=== PATIENT | female | born 2000 | race Caucasian/White ===

== ENCOUNTER 2020-10-01 11:11 | Outpatient (CLI) | payer BC | END 2020-10-01 11:12 | disposition home or self-care (01) | LOC: CTENTCT 11:11 | PROVIDERS: ATTEND Otolaryngology Plastic Surgery within the Head & Neck | DX: J32.9 Chronic sinusitis, unspecified (principal) | CPT/HCPCS: 70486 ==

== ENCOUNTER 2020-10-02 06:42 | Outpatient (CLI) | payer BC ==
[2020-10-02 14:41] LABS: BHCG - Serum Negative (NEGATIVE); Pregs Control Background? CLEAR/WHITE (CLR/WHITE); Pregs Control Bar Appear? YES (CONTROL BAR)
[2020-10-02 23:04] LABS: SARS-CoV-2 MS2 Positive; SARS-CoV-2 N Gene Negative; SARS-CoV-2 S Gene Negative; SARS-CoV-2 by NAA Not Detected (NotDetected); SARS-CoV-2 orf1ab Negative
== END 2020-10-02 06:43 | disposition home or self-care (01) ==
LOC: LABBT 06:42
PROVIDERS: ATTEND Otolaryngology Plastic Surgery within the Head & Neck
DX: Z01.812 Encounter for preprocedural laboratory examination (principal); Z20.828 Contact with and (suspected) exposure to other viral communicable diseases; J35.01 Chronic tonsillitis; J35.3 Hypertrophy of tonsils with hypertrophy of adenoids; R53.83 Other fatigue; J35.8 Other chronic diseases of tonsils and adenoids
CPT/HCPCS: 84703; 85014; 87635; U0003

== ENCOUNTER 2020-10-07 06:01 | Day surgery (SDC) | payer BC ==
[2020-10-06 12:21] VITALS: BMI 21.9
[2020-10-07] MEDS ORDERED: AFRIN NASAL MIST 15 ML BOT ONE ×2 (06:23→06:53)
[2020-10-07] MEDS ORDERED: Fentanyl 250 MCG/5 ML VIAL ONE (06:40)
[2020-10-07] MEDS ORDERED: Lidocaine 4% Topical Sol 50 ML BOT ONE (06:40)
[2020-10-07] MEDS ORDERED: Albuterol Sulfate HFA (OR ONLY) ONE (06:40)
[2020-10-07] MEDS ORDERED: Lidocaine 1% w/Epinephrine 1:100K 20 ML VIAL ONE (06:53)
[2020-10-07] MEDS ORDERED: Bacitracin Zinc Ointment 30 gm TUBE ONE (06:53)
[2020-10-07] MEDS ORDERED: Ferric Subsulfate (ASTRINGYN) 8 GM VIAL ONE (06:53)
[2020-10-07] MEDS ORDERED: Midazolam HCl 2 mg/2 ml Vial ONE (07:15)
[2020-10-07] MEDS ORDERED: methylPREDNISolone Acetate 40 mg/ml Vial ONE (07:47)
[2020-10-07] MEDS ORDERED: Fentanyl 100 MCG/2 ML VIAL ONE ×2 (08:21→08:32)
[2020-10-07] MEDS ORDERED: Morphine 2 MG/ML VIAL ONE ×2 (09:10→10:54)
[2020-10-07] MEDS ORDERED: Hydrocodone-Acetamin 15 ML UDCUP ONE (09:53)
[2020-10-07] MEDS ORDERED: PROPOFOL 200 MG/20 ML VIAL ONE (10:59)
[2020-10-07] MEDS ORDERED: Lidocaine 1% PF 5 ML VIAL ONE (10:59)
[2020-10-07] MEDS ORDERED: Ondansetron PF 4 MG/2 ML Vial ONE (10:59)
[2020-10-07] MEDS ORDERED: Ondansetron ODT 4 MG TAB ONE (11:58)
--- NOTE | 2020-10-07 15:45 | OP ---
DATE OF PROCEDURE: 10/07/2020 PREOPERATIVE DIAGNOSES: 1. Chronic rhinosinusitis. 2. Nasal septal deviation. 3. Bilateral inferior turbinate hypertrophy. 4. Left middle turbinate mery bullosa. 5. Chronic adenotonsillitis. 6. Adenotonsillar hypertrophy. POSTOPERATIVE DIAGNOSES: 1. Chronic rhinosinusitis. 2. Nasal septal deviation. 3. Bilateral inferior turbinate hypertrophy. 4. Left middle turbinate mery bullosa. 5. Chronic adenotonsillitis. 6. Adenotonsillar hypertrophy. PROCEDURES PERFORMED: 1. Bilateral endoscopic sinus surgery, total ethmoidectomies. 2. Bilateral endoscopic sinus surgery, maxillary antrostomies. 3. Bilateral endoscopic sinus surgery, frontal sinusotomies. 4. Nasal septoplasty. 5. Bilateral inferior turbinate submucosal resection. 6. Left middle turbinate mery bullosa resection. 7. Tonsillectomy and adenoidectomy. ESTIMATED BLOOD LOSS: 20 mL. COMPLICATIONS: None. ANESTHESIA: GETA. DESCRIPTION OF PROCEDURE: TONSILLECTOMY AND ADENOIDECTOMY After consent was obtained, the patient was identified, brought to the operating room, and placed on the operating table in the supine position. General endotracheal anesthesia and intravenous access were obtained and we proceeded with positioning the patient for oropharyngeal surgery. Oropharyngeal exposure was obtained with a Carito-Manuel mouth gag after a head drape was placed and secured with a towel clip. The Carito-Manuel mouth gag was then suspended from the Yi tray and palatal elevation was achieved with a red rubber catheter. The right tonsil was addressed first. We used a curved Allis to grasp the tonsil and retract it medially as an anterior pillar incision was made. The retrotonsillar fascial plane was then established and blunt dissection was performed with the suction cautery. Blood vessels were anticipated, identified, and cauterized as they were encountered. Ultimately, dissection was carried to the posterior tonsillar pillar mucosa which was incised hemostatically, as well as the base of tongue connection. The tonsil was then passed off as a specimen and bleeding points within the tonsillar bed were cauterized under direct visualization. We subsequently turned our attention to the contralateral side, where using a similar technique, a near identical procedure was performed. Again, the tonsil was grasped and retracted medially with a curved Allis. The retrotonsillar fascial plane was established and while the anterior pillar was retracted medially. The hemostatic blunt dissection of the tonsil with a suction cautery was performed with blood vessels anticipated, identified, and cauterized as they were encountered. Again, dissection continued to the base of tongue and posterior tonsillar pillar mucosa which was incised in a hemostatic fashion. The tonsillar beds were then carefully inspected and bleeding points were identified and cauterized with a suction cautery. After this portion of the procedure, hemostasis was completely obtained. Under direct mirror visualization, we visualized the adenoid pad. Under direct mirror visualization, we removed the bulk of the adenoid tissue with the adenoid curette. We then packed the nasopharynx for an appropriate period of time with Olb-[id number] tonsillar sponges. After a period of observation, we removed the pack. Under indirect mirror visualization, we obtained hemostasis and vaporization of residual adenoid tissue with electrocautery. The patient's oral cavity was copiously irrigated with iced saline and subsequently suctioned. After completion of the procedure, the nasal cavity and oropharynx were irrigated and suctioned as were the gastric contents. The patient was then awakened and transferred to the recovery room where the patient remained in stable condition prior to discharge to Day Stay. NASAL SEPTOPLASTY AND BILATERAL INFERIOR TURBINATE SUBMUCOSAL RESECTION Patient was taken to the operating room and placed supine on the table. General endotracheal anesthesia was obtained by the anesthesia staff. Then 1% lidocaine with 1:100,000 epinephrine was injected into the nasal septum as well as the inferior turbinates. The patient was prepped and draped in standard surgical fashion. The Afrin pledgets were then removed. A Jasen incision was made on the left nasal septum. Submucoperichondrial dissection was performed bilaterally of the deviated portions of the septum, which included the maxillary crest and the crest deviation, as well as the mid portion of the septum. Cartilage and bony deviation were removed, leaving a generous caudal and dorsal strut. Any straight pieces of cartilage were then placed within the cartilage press, pressed, straightened, and then placed between the mucoperichondrial flaps, which were then closed using a 4-0 gut stitch. The inferior turbinates were then punctured with the submucosal Coblation machine, and 3 separate coblations were delivered to the anterior inferior portion of the inferior turbinates. Following this, the nasal cavity was irrigated. All debris was removed. An orogastric tube was placed. Gastric contents and Francis splints were then placed in the nasal cavity and sutured with a 3-0 silk stitch. Following this, the 0-degree endoscope was advanced in the middle meatus. The middle turbinates were gently medialized using a [place] elevator. The uncinate process was visualized and was anteriorly fractured using a ball-ended probe. Following this, the uncinate process was removed using the 0-degree microdebrider and the up-biting Blakesley forceps bilaterally. Following this, the natural maxillary sinus ostia was identified and was gently widened using a ball-ended probe and curved microdebrider blade bilaterally. Following this, the maxillary antrostomy was identified and was gently widened using the curved microdebrider and a ball-ended probe bilaterally. Following this, ethmoidal bulla was identified and was punctured on its medial and inferior aspect and was removed using the 0-degree microdebrider bilaterally. The grand lamella was then identified and was punctured into the posterior ethmoidal cells using 0-degree microdebrider. Working from posterior to anterior, the ethmoidal cells were opened in a mucosal sparing technique bilaterally. Following this, a 45-degree endoscope along with the 40-degree microdebrider blade was used to further open the anterior ethmoidal cells as well as identify and open the frontal sinus ostia bilaterally. Following this, nasal cavity was irrigated. NasoPore packing was placed within the middle meatus. The left middle turbinate mery bullosa was incised with a sickle knife vertically on the anterior head of the left middle turbinate and was resected using a 0-degree microdebrider and straight Blakesley forceps. Following this, the nasal cavity was irrigated. NasoPore packing was placed within the middle meatus. Francis splints were placed and secured. Job ID: [id number]
== END 2020-10-07 13:05 | disposition home or self-care (01) ==
LOC: SDC 06:01
PROVIDERS: ATTEND Otolaryngology Plastic Surgery within the Head & Neck
PROC: 099Q8ZZ Drainage of Right Maxillary Sinus, Via Natural or Artificial Opening Endoscopic (ICD-10-PCS; principal; 2020-10-07)
PROC: 09BS8ZZ Excision of Right Frontal Sinus, Via Natural or Artificial Opening Endoscopic (ICD-10-PCS; principal; 2020-10-07)
PROC: 09BL8ZZ Excision of Nasal Turbinate, Via Natural or Artificial Opening Endoscopic (ICD-10-PCS; principal; 2020-10-07)
PROC: 0CTQXZZ Resection of Adenoids, External Approach (ICD-10-PCS; principal; 2020-10-07)
PROC: 09TV8ZZ Resection of Left Ethmoid Sinus, Via Natural or Artificial Opening Endoscopic (ICD-10-PCS; principal; 2020-10-07)
PROC: 09TU8ZZ Resection of Right Ethmoid Sinus, Via Natural or Artificial Opening Endoscopic (ICD-10-PCS; principal; 2020-10-07)
PROC: 09BT8ZZ Excision of Left Frontal Sinus, Via Natural or Artificial Opening Endoscopic (ICD-10-PCS; principal; 2020-10-07)
PROC: 09BM8ZZ Excision of Nasal Septum, Via Natural or Artificial Opening Endoscopic (ICD-10-PCS; principal; 2020-10-07)
PROC: 0CTPXZZ Resection of Tonsils, External Approach (ICD-10-PCS; principal; 2020-10-07)
PROC: 099R8ZZ Drainage of Left Maxillary Sinus, Via Natural or Artificial Opening Endoscopic (ICD-10-PCS; principal; 2020-10-07)
DX: J35.03 Chronic tonsillitis and adenoiditis (principal); J35.8 Other chronic diseases of tonsils and adenoids; J34.2 Deviated nasal septum; J34.3 Hypertrophy of nasal turbinates; J32.8 Other chronic sinusitis; H65.93 Unspecified nonsuppurative otitis media, bilateral; H69.80 Other specified disorders of Eustachian tube, unspecified ear
CPT/HCPCS: 88304; J2250; J2270; J2405; J2704; J2920; J3010; Q0162

== ENCOUNTER 2021-02-26 13:03 | Outpatient (CLI) | payer BC ==
[2021-02-27 01:51] LABS: SARS-CoV-2 PCR by NAA Not Detected (NotDetected)
== END 2021-02-26 13:04 | disposition home or self-care (01) ==
LOC: LABBT 13:03
PROVIDERS: ATTEND Surgery
DX: Z01.812 Encounter for preprocedural laboratory examination (principal); K64.8 Other hemorrhoids; Z20.822 Contact with and (suspected) exposure to COVID-19
CPT/HCPCS: 87635; U0003; U0005

== ENCOUNTER 2021-03-03 10:50 | Day surgery (SDC) | payer BC ==
[2021-03-02 11:50] VITALS: BMI 23.0
[2021-03-03] MEDS ORDERED: Scopolamine 1.5 mg/72 hour Patch ONE (12:50)
[2021-03-03] MEDS ORDERED: EPINEPHrine 1 MG/ML AMP ONE (13:00)
[2021-03-03] MEDS ORDERED: Lidocaine 2% PF 5 ML VIAL ONE (13:00)
[2021-03-03] MEDS ORDERED: Lidocaine 2% Jelly 5 ML TUBE ONE (13:00)
[2021-03-03] MEDS ORDERED: Bupivacaine 0.25% HCL 30 ML VIAL ONE (13:00)
[2021-03-03] MEDS ORDERED: Midazolam HCl 2 mg/2 ml Vial ONE ×2 (13:09→13:15)
[2021-03-03] MEDS ORDERED: Fentanyl 100 MCG/2 ML VIAL ONE (13:09)
[2021-03-03] MEDS ORDERED: PROPOFOL 200 MG/20 ML VIAL ONE (13:27)
[2021-03-03] MEDS ORDERED: Dexamethasone 20 MG/5 ML VIAL ONE (13:27)
[2021-03-03] MEDS ORDERED: Ketorolac Tromethamine 30 MG/ML VIAL ONE (13:27)
[2021-03-03] MEDS ORDERED: Lidocaine 1% PF 5 ML VIAL ONE (13:27)
[2021-03-03] MEDS ORDERED: Ondansetron PF 4 MG/2 ML Vial ONE (13:27)
[2021-03-03] MEDS ORDERED: Meperidine HCl/PF 25 MG/ML VIAL ONE (14:15)
== END 2021-03-03 16:00 | disposition home or self-care (01) ==
LOC: SDC 10:50
PROVIDERS: ATTEND Surgery
PROC: 06BY0ZC Excision of Hemorrhoidal Plexus, Open Approach (ICD-10-PCS; principal; 2021-03-03)
DX: K64.8 Other hemorrhoids (principal); K64.4 Residual hemorrhoidal skin tags; Z79.899 Other long term (current) drug therapy
CPT/HCPCS: 88304; J0171; J0690; J1100; J1885; J2001; J2175; J2250; J2405; J2704; J3010; S0020

== ENCOUNTER 2021-07-05 14:08 | Outpatient (CLI) | payer OTHER | END 2021-07-05 14:09 | disposition home or self-care (01) | LOC: SCSMRI 14:08 | PROVIDERS: ATTEND Family Medicine | DX: S89.92XD Unspecified injury of left lower leg, subsequent encounter (principal); S83.242A Other tear of medial meniscus, current injury, left knee, initial encounter ==

== ENCOUNTER 2021-07-22 16:33 | Outpatient (CLI) | payer BC ==
[2021-07-22 17:50] LABS: BHCG - Serum Negative (NEGATIVE); Pregs Control Background? CLEAR/WHITE (CLR/WHITE); Pregs Control Bar Appear? YES (CONTROL BAR)
[2021-07-22 17:56] LABS: #Basophils 0.1 10x3/uL (0.0-0.2); #Eosinphils 0.1 10x3/uL (0.0-0.5); #Monocytes 0.7 10x3/uL (0.0-1.1); #Neutrophils 3.3 10x3/uL (1.5-8.4); %Basophils 0.8 % (0.0-2.0); %Eosinophils 1.3 % (0.0-6.0); %Lymphocytes 36.1 % (18.0-47.0); %Monocytes 10.5 % (0.0-10.0); %Neutrophils 51.1 % (40.0-75.0); Hemoglobin 12.5 g/dL (12.0-15.5); Mean Corpuscular HGB CONC 32.6 g/dL (32.0-36.0); Mean Corpuscular Hemoglobin 28.7 pg (27.0-33.0); Mean Corpuscular Volume 88.1 fl (81.6-98.3); Platelet Count 245 10x3/uL (150-450); RBC Distribution Width 12.9 % (11.5-14.5); Red Blood Cell (RBC) Count 4.36 10x6/uL (3.90-5.03); White Blood Cell (WBC) Count 6.4 10x3/uL (3.5-10.5)
[2021-07-23 08:53] LABS: SARS-CoV-2 PCR by NAA Not Detected (NotDetected)
== END 2021-07-22 16:34 | disposition home or self-care (01) ==
LOC: LABBT 16:33
PROVIDERS: ATTEND Orthopaedic Surgery
DX: Z01.812 Encounter for preprocedural laboratory examination (principal); S83.212A Bucket-handle tear of medial meniscus, current injury, left knee, initial encounter; Z20.822 Contact with and (suspected) exposure to COVID-19
CPT/HCPCS: 84703; 85025; U0003; U0005

== ENCOUNTER 2021-07-27 06:26 | Day surgery (SDC) | payer OTHER ==
[2021-07-23 10:14] VITALS: BMI 22.0
[2021-07-27] MEDS ORDERED: ceFAZolin 2 GM/DEX 5% 100 ML BAG ONE ×2 (07:54)
[2021-07-27] MEDS ORDERED: PROPOFOL 20 ML ONE (07:55)
[2021-07-27] MEDS ORDERED: Scopolamine 1.5 mg/72 hour Patch ONE (08:42)
[2021-07-27] MEDS ORDERED: Fentanyl 100 MCG/2 ML VIAL ONE (09:19)
[2021-07-27] MEDS ORDERED: Propofol 1,000 MG/100 ML VIAL IV ONE (09:19)
[2021-07-27] MEDS ORDERED: Lidocaine 2% w/Epinephrine 1:200K 20 ML VIAL ONE (09:42)
[2021-07-27] MEDS ORDERED: Lidocaine 1% PF 5 ML VIAL ONE (09:42)
[2021-07-27] MEDS ORDERED: Dexamethasone 20 MG/5 ML VIAL ONE (09:42)
[2021-07-27] MEDS ORDERED: Ondansetron PF 4 MG/2 ML Vial ONE (09:42)
[2021-07-27] MEDS ORDERED: PROPOFOL 200 MG/20 ML VIAL ONE (09:42)
[2021-07-27] MEDS ORDERED: diphenhydrAMINE 50 MG/ML VIAL ONE (09:42)
[2021-07-27] MEDS ORDERED: Metoclopramide HCl 10 MG/2 ML VIAL ONE (09:42)
[2021-07-27] MEDS ORDERED: Bupivacaine PF 0.5% 30 ML VIAL ONE (09:42)
[2021-07-27] MEDS ORDERED: Lidocaine 1% (PF) 30 ML VIAL ONE (10:34)
[2021-07-27] MEDS ORDERED: Meperidine HCl/PF 25 MG/ML VIAL ONE (11:31)
== END 2021-07-27 14:45 | disposition home or self-care (01) ==
LOC: SDC 06:26
PROVIDERS: ATTEND Orthopaedic Surgery
PROC: 0SBD4ZZ Excision of Left Knee Joint, Percutaneous Endoscopic Approach (ICD-10-PCS; principal; 2021-07-27)
DX: S83.212A Bucket-handle tear of medial meniscus, current injury, left knee, initial encounter (principal); Z79.3 Long term (current) use of hormonal contraceptives; Z79.899 Other long term (current) drug therapy; X58.XXXA Exposure to other specified factors, initial encounter
CPT/HCPCS: J1100; J1200; J2001; J2175; J2405; J2704; J2765; J3010; S0020